=== PATIENT | male | born 2005 | race Caucasian/White ===

== ENCOUNTER 2024-02-12 02:17 | Emergency (ER) | payer SELFPAY ==
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
[2024-02-12 02:22] VITALS: BP 103/62; PULSE 85; RESP 18; TEMP 36.6; O2SAT 98; BMI 19.7
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
[2024-02-12 02:31] VITALS: BP 103/62; PULSE 82; RESP 18; TEMP 36.6; O2SAT 98
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
[2024-02-12 03:45] VITALS: PULSE 81; RESP 16; O2SAT 98
== END 2024-02-12 03:40 | disposition home or self-care (01) ==
PROVIDERS: Emergency Provider Emergency Medicine
DX: Z04.1 Encounter for examination and observation following transport accident (principal); V89.2XXA Person injured in unspecified motor-vehicle accident, traffic, initial encounter
CPT/HCPCS: 70450; 73090; 99284